=== PATIENT | male | born 1950 | race Caucasian/White ===

== ENCOUNTER → 2016-12-26 | Outpatient (CLI) | payer OTHER, MEDICARE ==
--- NOTE | 2016-12-28 13:25 | RAD ---
Four views of bilateral hips Indication: Chronic hip pain Findings: There is no fracture dislocation within the lateral left hip. No significant degenerative c hange within the femoroacetabular joints. No localizing soft tissue swelling. Pubic symphysis and SI joints are intact. Impression: No radiographic abnormality identified within either hip. Reported By:
== END ==
LOC: RAD 15:04
PROVIDERS: ATTEND Pain Medicine Pain Medicine
DX: M54.16 Radiculopathy, lumbar region (principal); G89.4 Chronic pain syndrome
CPT/HCPCS: 73521

== ENCOUNTER → 2017-02-04 | Outpatient (CLI) | payer OTHER, MEDICARE | LOC: LAB 09:14 | DX: N40.1 Benign prostatic hyperplasia with lower urinary tract symptoms (principal) | CPT/HCPCS: 36415; 84153 ==